=== PATIENT | female | born 1945 | race Two or more races ===

== ENCOUNTER 2018-03-07 14:17 | Inpatient (IN) | payer OTHER, MEDICAID ==
[~2018-03-07] VITALS: Ht 154.9 cm; Wt 69.4 kg
[2018-03-07 15:13] LABS: BASOPHILS # (AUTO) 0.1 /CMM (0.0-0.2); BASOPHILS % (AUTO) 0.8 % (0.0-2.0); EOSINOPHILS % (AUTO) 0.8 % (0.0-6.0); HEMATOCRIT 42 % (33-45); HEMOGLOBIN 13.5 g/dL (11.5-14.8); LYMPHOCYTES # (AUTO) 2.2 /CMM (0.8-4.8); MEAN CORPUSCULAR HEMOGLOBIN 27 PG (26.0-33.0); MEAN CORPUSCULAR HGB CONC 33 g/dl (31.0-36.0); MEAN CORPUSCULAR VOLUME 83 fL (82-100); MONOCYTES # (AUTO) 0.7 /CMM (0.1-1.30); MONOCYTES % (AUTO) 5.9 % (2.0-12.0); NEUTROPHILS % (AUTO) 74.5 % (43.0-81.0); PLATELET COUNT (AUTO) 268 /CMM (150-450); RDW COEFFICIENT OF VARIATION 12.9 (11.5-15.0); RED BLOOD CELL COUNT(AUTO) 5.01 MIL/uL (4.0-5.2); WHITE BLOOD COUNT (AUTO) 12.1 K/uL (4.3-11.0)
[2018-03-07] MEDS ORDERED: LOSA1TAB39 PO (15:16)
[2018-03-07] MEDS ORDERED: INSU300I SQ (15:16)
[2018-03-07] MEDS ORDERED: LINA1TAB7 PO (15:16)
[2018-03-07] MEDS ORDERED: METO25TA3 PO (15:16)
[2018-03-07] MEDS ORDERED: GABA-534 PO (15:16)
[2018-03-07] MEDS ORDERED: HYDR-4075 PO (15:16)
[2018-03-07] MEDS ORDERED: GLIM2TAB2 PO (15:16)
[2018-03-07 15:24] LABS: CALCIUM, SERUM 8.9 mg/dL (8.5-10.1); CARBON DIOXIDE 30 mmol/L (21-32); CHLORIDE 103 mmol/L (98-107); GLUCOSE 177 mg/dL (74-106); POTASSIUM 3.4 mmol/L (3.5-5.1); SODIUM SERUM 140 mmol/L (136-145); UREA NITROGEN, BLOOD 24 mg/dL (7-18)
[2018-03-07 15:27] LABS: INR 0.94 (0.85-1.15)
[2018-03-07 15:33] LABS: TROPONIN I < 0.017 ng/mL (0.00-0.056)
--- NOTE | 2018-03-07 15:44 | NUR ---
CALLED [employer] FILL MANAGER WAS PAGED.
[2018-03-07 16:03] LABS: CHOLESTEROL 204 mg/dL (<200); HDL CHOLESTEROL 45 mg/dL (40-60); LDL 135 mg/dL (0-99); TRIGLYCERIDES 164 mg/dL (30-150)
[2018-03-07] MEDS ORDERED: Z GUARD REMEDY 2 OZ OINT TP PRN (17:00)
[2018-03-07] MEDS ORDERED: POTASSIUM CHLORIDE 20 MEQ TAB.PRT.SR PO ONE ×3 (17:00→17:07)
[2018-03-07] MEDS ORDERED: DEXTROSE 50%-WATER 50 ML DISP.SYRIN IV PRN (17:00)
[2018-03-07] MEDS ORDERED: ONDANSETRON HCL/PF 4 MG/2 ML VIAL IVP PRN (17:00)
--- NOTE | 2018-03-07 17:45 | NUR ---
SHIPPING ASSOCIATE ADMITTING NOTES: PATIENT ADMITTED FROM ED VIA [facility] WITH ADMITTING DX OF ACUTE CVA. HISTORY OF HTN AND DM. WEAKNESS ON RIGHT UPPER AND LOWER EXTREMITY NOTED. DENIES PAIN AND DISCOMFORT AT THIS TIME. ON ROOM AIR, SATURATING WELL. NO SOB NOTED. IV ON LEFT HAND #20 AND LEFT AC #20 INTACT AND PATENT, FLUSHING WELL. SINUS RHYTHM ON TELE MONITOR, HR 62BPM. ALL DUE MEDS GIVEN ORDERED AND WELL TOLERATED, NO DIFFICULTY SWALLOWING NOTED. NO SIGNS OF ASPIRATION. SKIN IS INTACT. CALL LIGHT PLACED WITHIN REACH. KEPT CLEAN, DRY AND COMFORTABLE. SAFETY AND FALL PRECAUTIONS OBSERVED AND MAINTAINED. ALL NEEDS ATTENDED.
[2018-03-07 18:00] VITALS: BP 146/62
[2018-03-07] MEDS: BLOOD SUGAR DIAGNOSTIC 1 EACH STRIP VI SCH ×2 (18:02→22:00)
[2018-03-07] MEDS: GLIMEPIRIDE 1 MG TABLET PO SCH (18:08)
[2018-03-07] MEDS: GABAPENTIN 300 MG CAPSULE PO SCH (18:08)
[2018-03-07] MEDS: hydrALAZINE HCL 10 MG TABLET PO SCH (18:09)
[2018-03-07] MEDS: ENOXAPARIN SODIUM 40 MG/0.4 ML DISP.SYRIN SQ SCH (18:10)
[2018-03-07] MEDS: INSULIN REGULAR, HUMAN 100 UNIT/ML 3 ML VIAL SQ PRN (18:15)
[2018-03-07 20:00] VITALS: BP 125/47
--- NOTE | 2018-03-07 20:00 | NUR ---
HARNESS INSPECTOR NOTES RECEIVED PTS IN BED AWAKE ALERT AND ORIENTED HAITIAN SPEAKING , ABLE TO MAKE NEEDS KNOWN.ON TELE SR -60S ON THE MONITOR , NO SOB NO DISTRESS NOTED,NO COMPLAIN OF PAIN AT THIS TIME .PTS NOTED WITH RIGHT SIDED WEAKNESS , DUE MEDS GIVEN ORDERED CALL LIGHT WITHIN REACH , KEPT PTS CLEAN DRY AND COMFORTABLE, V/S STABLE AFEBRILE, WITH HEPLOCK INTACT AND PATENT , PTS IS CONTINENT TO B&B FUNCTION. WILL CONTINUE TO MONITOR PTS.
[2018-03-07 21:35] LABS: APPEARANCE,URINE CLEAR (CLEAR); BILIRUBIN,URINE NEGATIVE (NEGATIVE); BLOOD, URINE NEGATIVE Ery/uL (NEGATIVE); COLOR,URINE YELLOW (YELLOW); KETONES,URINE NEGATIVE (NEGATIVE); LEUKOCYTE ESTERASE ,URINE NEGATIVE (NEGATIVE); NITRITE, URINE NEGATIVE (NEGATIVE); PH,URINE 6.5 (5.0-8.0); PROTEIN,URINE NEGATIVE (NEGATIVE); UGLUCOSE NEGATIVE (NEGATIVE); UROBILINOGEN,URINE 0.2 EU/dL (0.2)
--- NOTE | 2018-03-07 22:00 | NUR ---
TAZ VACA NOTES BLOOD SUGAR AT 10 PM IS 227 MG/DL LANTUS 30 UNITS GIVEN ORDERED AND REGULAR INSULIN 4 UNITS GIVEN PER SLIDING SCALE. PTS OFFERED SNACK, WILL CHECK BS AGAIN IN AM. Addendum: 03/08/18 at 0501 by NILS KOEHLER RN PTS ON TELE STATUS NOT LIO STATUS
[2018-03-07] MEDS: ATORVASTATIN 40 MG TABLET PO SCH (23:10)
[2018-03-07] MEDS: INSULIN GLARGINE, 100 UNIT/ML CARTRIDGE SQ SCH (23:15)
[2018-03-07] MEDS: *INSULIN REGULAR(HUMULIN R)HUM 100 UNIT/ML VIAL SQ PRN (23:17)
[2018-03-08] VITALS (7 sets, daily range): BP systolic 116–156; BP diastolic 51–99
[2018-03-08 06:22] LABS: BASOPHILS % (AUTO) 0.5 % (0.0-2.0); EOSINOPHILS % (AUTO) 3.1 % (0.0-6.0); HEMATOCRIT 41 % (33-45); HEMOGLOBIN 13.3 g/dL (11.5-14.8); LYMPHOCYTES # (AUTO) 2.8 /CMM (0.8-4.8); LYMPHOCYTES % (AUTO) 35.1 % (20.0-44.0); MEAN CORPUSCULAR HEMOGLOBIN 28 PG (26.0-33.0); MEAN CORPUSCULAR HGB CONC 33 g/dl (31.0-36.0); MEAN CORPUSCULAR VOLUME 86 fL (82-100); MONOCYTES # (AUTO) 0.6 /CMM (0.1-1.30); MONOCYTES % (AUTO) 7.5 % (2.0-12.0); NEUTROPHILS # (AUTO) 4.2 /CMM (1.8-8.9); NEUTROPHILS % (AUTO) 53.8 % (43.0-81.0); PLATELET COUNT (AUTO) 235 /CMM (150-450); RDW COEFFICIENT OF VARIATION 13.9 (11.5-15.0); RED BLOOD CELL COUNT(AUTO) 4.75 MIL/uL (4.0-5.2); WHITE BLOOD COUNT (AUTO) 7.9 K/uL (4.3-11.0)
[2018-03-08 06:41] LABS: CHOLESTEROL 192 mg/dL (<200); HDL CHOLESTEROL 41 mg/dL (40-60); LDL 128 mg/dL (0-99); TRIGLYCERIDES 161 mg/dL (30-150)
[2018-03-08 06:42] LABS: ALANINE AMINOTRANSFERASE 55 U/L (12-78); ALBUMIN 3.1 g/dL (3.4-5.0); ALKALINE PHOSPHATASE 99 U/L (46-116); ASPARTATE AMINOTRANSFERASE 34 U/L (15-37); BILIRUBIN,TOTAL 0.6 mg/dL (0.2-1.0); CALCIUM, SERUM 8.7 mg/dL (8.5-10.1); CARBON DIOXIDE 32 mmol/L (21-32); CHLORIDE 103 mmol/L (98-107); CREATININE 0.9 mg/dL (0.6-1.3); GLUCOSE 169 mg/dL (74-106); MAGNESIUM 1.7 mg/dL (1.8-2.4); PHOSPHORUS 3.7 mg/dL (2.5-4.9); POTASSIUM 3.3 mmol/L (3.5-5.1); SODIUM SERUM 140 mmol/L (136-145); UREA NITROGEN, BLOOD 23 mg/dL (7-18)
[2018-03-08 06:43] LABS: TROPONIN I < 0.017 ng/mL (0.00-0.056)
--- NOTE | 2018-03-08 07:07 | NUR ---
telecommunication engineer notes pts on bed a/o x2 croatian speaking , v/s stable afebrile , no sob no distress noted ,on sr on the monitor , will endorse pts to [facility] day shift for continuity of care, pts for mri brain today .daughter vladimir made aware.
--- NOTE | 2018-03-08 07:40 | NUR ---
RN NOTE RECEIVED PATIENT AWAKE IN BED WATCHING T.V. ALERT AND ORIENTED X2, SHE IS ABLE TO MAKE THINGS KNOWN AND VERBALIZE NEEDS. BREATHING EVEN AND UNLABORED WITH NO DISTRESS NOTED. ON SOCIAL SERVICES DESIGNEE SINUS RHYTHM HR OF 63. L HAND IV SITE AND LEFT AC INTACT AND PATENT. PATIENT NOTED WITH MILD RIGHT SIDED WEAKNESS. PATIENT MADE AWARE OF MRI LATER THIS MORNING. ALL SAFETY MEASURES DONE. BED LOW AND LOCKED POSITION. PLACED CALL LIGHT WITH IN REACH. WILL CONTINUE TO MONITOR
[2018-03-08] MEDS: BLOOD SUGAR DIAGNOSTIC 1 EACH STRIP VI SCH ×4 (07:54→21:22)
[2018-03-08] MEDS: DOCUSATE SODIUM 100 MG CAPSULE PO SCH (08:12)
[2018-03-08] MEDS: GABAPENTIN 300 MG CAPSULE PO SCH ×3 (08:12→16:17)
[2018-03-08] MEDS: GLIMEPIRIDE 1 MG TABLET PO SCH ×2 (08:12→16:17)
[2018-03-08] MEDS: LOSARTAN POTASSIUM 50 MG TABLET PO SCH (08:13)
[2018-03-08] MEDS: hydrALAZINE HCL 10 MG TABLET PO SCH ×2 (08:13→16:17)
[2018-03-08] MEDS ORDERED: METOPROLOL SUCCINATE 25 MG TAB.SR.24H PO SCH (09:00)
[2018-03-08] MEDS: ASPIRIN EC 325 MG TABLET.DR PO SCH (09:11)
[2018-03-08] MEDS: Magnesium 1GM/D5W 100ML PREMIX 100 ML IV SCH ×2 (09:36→11:27)
[2018-03-08] MEDS ORDERED: POTASSIUM CHLORIDE 20 MEQ TAB.PRT.SR PO ONE (10:00)
--- NOTE | 2018-03-08 10:00 | NUR ---
RN NOTE PATIENT IN STABLE CONDITION. PATIENT LEFT THE UNIT AT 1000 FOR HER MRI WITH TRANSPORTER AND X-RAY TECH.
--- NOTE | 2018-03-08 11:20 | NUR ---
RN NOTE PATIENT CAME BACK FROM MRI PROCEDURE, NO DISTRESS OR ACUTE CHANGES. PATIENT IS STABLE. WILL CONTINUE TO MONITOR.
[2018-03-08] MEDS: INSULIN REGULAR, HUMAN 100 UNIT/ML 3 ML VIAL SQ PRN ×2 (12:10→17:08)
--- NOTE | 2018-03-08 19:03 | NUR ---
RN NOTE PATIENT REMAINED STABLE THROUGHOUT SHIFT. NO ACUTE CHANGES OR DISTRESS NOTED. WILL ENDORSE TO NEXT SHIFT TO CONTINUE CONTINUITY OF CARE.
--- NOTE | 2018-03-08 19:30 | NUR ---
POLICYHOLDER INFORMATION CLERK NOTES RECEIVED PT ON BED, WITH FAMILY ON BEDSIDE. ON ROOM AIR SATURATING WELL. NO RESPIRATORY DISTRESS NOTED. PT A/OX3 SWAZI SPEAKING. IV ACCESS ON LEFT HAND G20 AND LEFT HAND AC #20 SALINE LOCK. IV ACCESS PATENT AND INTACT. ON TELE MONITOR SR-SB. HEAD OF BED ELEVATED. SIDE RAILS UP. CALL LIGHT WITHIN REACH. BED ALARM ON. WILL CONTINUE TO MONITOR PT CLOSELY.
[2018-03-08] MEDS: *INSULIN REGULAR(HUMULIN R)HUM 100 UNIT/ML VIAL SQ PRN (21:19)
[2018-03-08] MEDS: ENOXAPARIN SODIUM 40 MG/0.4 ML DISP.SYRIN SQ SCH (21:19)
[2018-03-08] MEDS: INSULIN GLARGINE, 100 UNIT/ML CARTRIDGE SQ SCH (21:21)
[2018-03-08] MEDS: ATORVASTATIN 40 MG TABLET PO SCH (21:22)
[2018-03-09] VITALS (8 sets, daily range): BP systolic 123–143; BP diastolic 56–93
[2018-03-09 06:48] LABS: CALCIUM, SERUM 8.9 mg/dL (8.5-10.1); CARBON DIOXIDE 29 mmol/L (21-32); CHLORIDE 106 mmol/L (98-107); CREATININE 0.8 mg/dL (0.6-1.3); GLUCOSE 105 mg/dL (74-106); POTASSIUM 3.5 mmol/L (3.5-5.1); SODIUM SERUM 142 mmol/L (136-145); UREA NITROGEN, BLOOD 18 mg/dL (7-18)
--- NOTE | 2018-03-09 07:16 | NUR ---
MILL HAND NOTES NO ACUTE CHANGES NOTED DURING THE SHIFT. PROVIDED COMFORT AND SAFETY. BED ALARM ON. HEAD OF BED ELEVATED. SIDE RAILS UP. CALL LIGHT WITHIN REACH. ENDORSED TO THE AM NURSE FOR CONTINUITY FOR CARE.
--- NOTE | 2018-03-09 07:30 | NUR ---
RN NOTE RECEIVED PATIENT AWAKE IN BED WATCHING T.V. ALERT AND ORIENTED X2-3, SHE IS ABLE TO MAKE THINGS KNOWN AND VERBALIZE NEEDS IN [place] LANGUAGE (ARMENIAN). BREATHING EVEN AND UNLABORED WITH NO DISTRESS NOTED. ON WHITE METAL CASTER SINUS SHADI HR OF 57. L HAND IV SITE AND LEFT AC INTACT AND PATENT. PATIENT IS ABLE TO AMBULANCE WITH ASSIST. ALL SAFETY MEASURES DONE. BED LOW AND LOCKED POSITION. PLACED CALL LIGHT WITH IN REACH. WILL CONTINUE TO MONITOR
[2018-03-09] MEDS: BLOOD SUGAR DIAGNOSTIC 1 EACH STRIP VI SCH ×4 (07:35→21:33)
[2018-03-09] MEDS: GABAPENTIN 300 MG CAPSULE PO SCH ×3 (08:25→16:22)
[2018-03-09] MEDS: GLIMEPIRIDE 1 MG TABLET PO SCH ×2 (08:25→16:22)
[2018-03-09] MEDS: ASPIRIN EC 325 MG TABLET.DR PO SCH (08:26)
[2018-03-09] MEDS: hydrALAZINE HCL 10 MG TABLET PO SCH ×2 (08:26→16:22)
[2018-03-09] MEDS: DOCUSATE SODIUM 100 MG CAPSULE PO SCH (08:26)
[2018-03-09] MEDS: LOSARTAN POTASSIUM 50 MG TABLET PO SCH (08:29)
[2018-03-09] MEDS: METOPROLOL SUCCINATE 50 MG TAB.SR.24H PO SCH (08:58)
[2018-03-09] MEDS: INSULIN REGULAR, HUMAN 100 UNIT/ML 3 ML VIAL SQ PRN ×2 (12:07→17:22)
--- NOTE | 2018-03-09 19:15 | NUR ---
RN NOTE PATIENT REMAINED STABLE THROUGHOUT THE SHIFT. NO ACUTE CHANGES OR DISTRESS NOTED. WILL ENDORSE TO NEXT SHIFT TO CONTINUE CONTINUITY OF CARE.
[2018-03-09] MEDS: ENOXAPARIN SODIUM 40 MG/0.4 ML DISP.SYRIN SQ SCH (20:19)
[2018-03-09] MEDS: ATORVASTATIN 40 MG TABLET PO SCH (21:28)
[2018-03-09] MEDS: INSULIN GLARGINE, 100 UNIT/ML CARTRIDGE SQ SCH (21:28)
[2018-03-09] MEDS: *INSULIN REGULAR(HUMULIN R)HUM 100 UNIT/ML VIAL SQ PRN (21:30)
[2018-03-10] VITALS: BP 124/64
[2018-03-10 04:00] VITALS: BP 136/49
[2018-03-10] MEDS: ACETAMINOPHEN 325 MG TABLET PO PRN ×2 (06:08→19:52)
--- NOTE | 2018-03-10 07:15 | NUR ---
OIL AND GAS LEASE PUMPER INITIAL NOTES RECEIVED REPORT AND PATIENT FROM PM NURSE, PT RESTING IN BED, ON TELE MON SB WITH HEART RATE 58, A&O X4 [place] SPEAKING, RT SIDED WEAKNESS IN ARM, IV SITE INTACT AND PATENT NO INFILTRATION NOTED, ALL SAFETY MEASURES INITIATED, ALL NEEDS MET, NO SOB OR ACUTE DISTRESS NOTED, BRP WITH ASSIST WALKER, WILL CONTINUE TO MONITOR.
[2018-03-10 08:00] VITALS: BP 139/62
[2018-03-10] MEDS: LOSARTAN POTASSIUM 50 MG TABLET PO SCH (08:51)
[2018-03-10] MEDS: DOCUSATE SODIUM 100 MG CAPSULE PO SCH (08:51)
[2018-03-10] MEDS: GABAPENTIN 300 MG CAPSULE PO SCH ×3 (08:51→17:29)
[2018-03-10] MEDS: BLOOD SUGAR DIAGNOSTIC 1 EACH STRIP VI SCH ×3 (08:52→17:29)
[2018-03-10] MEDS: hydrALAZINE HCL 10 MG TABLET PO SCH ×2 (08:52→17:33)
[2018-03-10] MEDS: GLIMEPIRIDE 1 MG TABLET PO SCH ×2 (08:52→17:29)
[2018-03-10] MEDS: ASPIRIN EC 325 MG TABLET.DR PO SCH (08:52)
[2018-03-10] MEDS: METOPROLOL SUCCINATE 50 MG TAB.SR.24H PO SCH (08:53)
[2018-03-10] MEDS: INSULIN REGULAR, HUMAN 100 UNIT/ML 3 ML VIAL SQ PRN ×3 (09:01→17:34)
[2018-03-10] MEDS ORDERED: ATOR40TA PO (11:26)
[2018-03-10] MEDS ORDERED: ASPI-605 PO (11:26)
[2018-03-10 12:00] VITALS: BP 135/58
--- NOTE | 2018-03-10 13:18 | NUR ---
Social service consult requested by Dr. Sorto for stroke. Pt. is a 72 year old female who was admitted to [facility] for having a stroke. Pt. lives at home with her family. Her DPOA is her daughter Yelena Campa and she can be reached at . Pt. is alert and oriented x 3. pt. was independent with ADL's prior to hospitalization. Pt. has had no home health services at home. Pt. to be discharged to [facility] for further rehab. No other social service needs are requested at this time. SW is available, if needed.
--- NOTE | 2018-03-10 15:35 | NUR ---
METAL EXPEDITER NOTES PATIENT DC PAPERWORK COMPLETE, EXIT CARE SIGNED AND COMPLETED, TEACHING DONE, PT LEAVING TO [facility] VIZCAINO [phone] ROOM 309 B, ASSISTANT ACCOUNT MANAGER TIME IS 5:30 PM AMBULANCE WILL COME TO ASSISTANT ACCOUNT MANAGER PATIENT, NEW PRESCRIPTION PLACED IN CHART.
[2018-03-10 16:00] VITALS: BP 130/67
[2018-03-10 17:33] VITALS: BP 130/67
--- NOTE | 2018-03-10 18:39 | NUR ---
ASSISTANT GENERAL MANAGER ENDING NOTES PT DC PAPERWORK SIGNED AND COMPLETED REPORT GIVEN TO [place] AT [facility], ALL DUE MEDS GIVEN, ALL NEEDS MET, LEFT HAND IV SITE STILL INTACT AND PATENT, BELONGINGS LIST SIGNED AND COMPLETED, ALL EXIT CARE PROVIDED AND DC PAPERWORK PLACED INSIDE CHART AND FOLDER, AWAITING FOR AMBULANCE TO INFORMATION TECHNOLOGY ARCHITECT PATIENT, NEW PRESCRIPTION PLACED IN FOLDER, ON TELE MONITOR SB WITH HR 59, RIGHT SIDED WEAKNESS STILL PRESENT, WILL ENDORSE TO PM NURSE TO SEND TO FACILITY.
--- NOTE | 2018-03-10 20:12 | NUR ---
RN NOTES. PATIENT IS ALERT AND ORIENTED X 4. FRISIAN SPEAKING. TO BE DISCHARGED TO [facility]. GAVE REPORT TO TAZ HARRIS. REMOVED ALL PATIENT'S IV LINE. TOLERATED WELL. PATIENT PATIENT PICKED UP BY 2 TRANSPORTATION STAFF WITH [facility]. LEFT HOSPITAL AT 20:10. SAFETY MEASURES PROVIDED
== END 2018-03-10 20:32 | DRG 65 ==
LOC: ER 14:18 → TELE1 16:08
PROVIDERS: ADMIT Nurse Practitioner Acute Care; ATTEND Nurse Practitioner Acute Care
DX: I63.9 Cerebral infarction, unspecified (principal); G81.91 Hemiplegia, unspecified affecting right dominant side; E11.65 Type 2 diabetes mellitus with hyperglycemia; D72.829 Elevated white blood cell count, unspecified; E87.6 Hypokalemia; E78.5 Hyperlipidemia, unspecified; R47.01 Aphasia; R29.810 Facial weakness; I10 Essential (primary) hypertension; Z79.84 Long term (current) use of oral hypoglycemic drugs
CPT/HCPCS: 36415; 70450-TC; 70553-TC; 71045-TC; 80048-TC; 80053-TC; 80061-TC; 80305; 81000-TC; 82962-TC; 83735-TC; 84100-TC; 84443-TC; 84484-TC; 85025-TC; 85652-TC; 85730-TC; 87081-TC; 92611-TC; 93307-TC; 93880-TC; 97110-TC; 97112-TC; 97116-TC; A4606; J1650; J1815; J3475; J7030; Z7610